=== PATIENT | female | born 1985 | race Two or more races ===

== ENCOUNTER 2021-03-22 09:21 | Outpatient (CLI) | payer OTHER | END 2021-03-22 09:35 | disposition home or self-care (01) | LOC: SONOGRAMA 09:21 | PROVIDERS: ATTEND Surgery | DX: D24.2 Benign neoplasm of left breast (principal); N60.11 Diffuse cystic mastopathy of right breast; N60.12 Diffuse cystic mastopathy of left breast ==

== ENCOUNTER → 2021-04-02 10:59 | Outpatient (CLI) | payer OTHER ==
[~2021-04-02 10:59] MED LIST: ATIVAN0.5 M1 PO; PAXIL CR25 MG PO; TALTZ SYRI80 MG/1 ML
== END | disposition home or self-care (01) ==
LOC: EKG 10:59 → LAB 10:59
PROVIDERS: ATTEND Specialist
DX: Z01.810 Encounter for preprocedural cardiovascular examination (principal); Z01.811 Encounter for preprocedural respiratory examination

== ENCOUNTER 2021-04-26 06:48 | Day surgery (SDC) | payer OTHER | END 2021-04-26 17:30 | disposition home or self-care (01) | LOC: CIR.AMB 06:48 | PROVIDERS: ATTEND Specialist | DX: N84.0 Polyp of corpus uteri (principal); Z20.822 Contact with and (suspected) exposure to COVID-19 ==

== ENCOUNTER 2021-05-24 05:45 | Day surgery (SDC) | payer OTHER | END 2021-05-24 12:05 | disposition home or self-care (01) | LOC: CIR.AMB 05:45 | PROVIDERS: ATTEND Surgery | DX: D24.2 Benign neoplasm of left breast (principal); Z20.822 Contact with and (suspected) exposure to COVID-19 ==

== ENCOUNTER 2023-01-18 21:27 | Inpatient (IN) | payer OTHER ==
[~2023-01-18] VITALS: Ht 167.6 cm; Wt 56.7 kg
--- NOTE | 2023-01-18 22:18 | NUR ---
PACIENTE ALERTA Y ORIENTADA POR CORAL. REFIERE DESDE EL JUEVES CON NAUSEAS, DOLOR PELVICO LADO DERECHO, ARDOR AL EVACUAR.
[2023-01-18] MEDS ORDERED: METOCLOPRAMIDE10 MG PO (22:21)
[2023-01-18] MEDS ORDERED: PROTECT PLUS S1 EACH PO (22:22)
[2023-01-18] MEDS ORDERED: CHLORDIAZEPOXI1 EACH (22:22)
--- NOTE | 2023-01-18 23:43 | NUR ---
SE EDUCA A PTE SOBRE TX MEDICO ESTA REFIERE ENTENDER. SE MAIKEL MUESTRAS DE LABORATORIO UTILIZANDO MEDIDAS ASEPTICAS. SE COLOCA H/L A PTE Y SE ADMINISTRAN MEDICAMENTOS LOS CUALES TOLERA. SE NOTIFICA ESTUDIO DE CT IV PENDIENTE A REALIZAR.
--- NOTE | 2023-01-19 07:22 | NUR ---
SE RECIBE PACIENTE DEL TURNO ANTERIOR LA MISMA SE ENCUENTRA EN AMELIA CON BARANDAS ELEVADAS POR PRECAUCION A CAIDAS, SE LE ORIENTA A PACIENTE SOBRE CONTINUIDAD DE TX Y VERBALIZA ENTNEDER. PACIENTE CANALIZADA, RECIBIENDO 0.9% NSS A 150ML/HR. PACIENTE CONSULTADA CON DR CALVILLO.
== END 2023-01-24 11:18 | disposition home or self-care (01) | DRG 392 ==
LOC: ER 21:27 → MEDJ 01-19 16:17
PROVIDERS: ADMIT Internal Medicine; ATTEND Internal Medicine
PROC: BW21Y0Z Computerized Tomography (CT Scan) of Abdomen and Pelvis using Other Contrast, Unenhanced and Enhanced (ICD-10-PCS; 2023-01-18)
PROC: 0DB68ZX Excision of Stomach, Via Natural or Artificial Opening Endoscopic, Diagnostic (ICD-10-PCS; principal; 2023-01-23)
PROC: 0DB98ZX Excision of Duodenum, Via Natural or Artificial Opening Endoscopic, Diagnostic (ICD-10-PCS; 2023-01-23)
DX: K90.49 Malabsorption due to intolerance, not elsewhere classified (principal); K29.00 Acute gastritis without bleeding; E86.0 Dehydration; R13.19 Other dysphagia; F17.200 Nicotine dependence, unspecified, uncomplicated; F10.21 Alcohol dependence, in remission; Z20.822 Contact with and (suspected) exposure to COVID-19